=== PATIENT | male | born 1965 | race Caucasian/White ===

== ENCOUNTER 2016-12-13 07:02 | Day surgery (SDC) | payer OTHER ==
[~2016-12-13 07:02] MED LIST: BLOOD PRESSURE MED PO; COREG12.5 M1 PO; COREG6.25 MG PO; ERYTHROMYCIN3.5 GM OP; LOSARTAN-HCTZ1 EAC6 PO; MEDS; MELOXICAM15 M1 PO; MULTIVITAMINS1 EAC6 PO; NORCO 5/325 TAB1 TAB PO; OMEPRAZOLE40 MG PO; PRINIVIL10 MG PO; SIMVASTATIN20 MG PO; ZOCOR40 M1 PO; [UNRECOGNIZED DRUG - REMARK] PO
[2016-12-13 08:08] LABS: BASO % 0.4 % (0-2); EOS % 4.2 % (0-7); EOSINOPHIL ABSOLUTE COUNT 0.2 tho/cmm (0.0-0.7); HCT-HEMATOCRIT 40.1 % (36.0-53.5); HGB-HEMOGLOBIN 14.2 gm/dl (13.5-17.0); LYMPH % 28.3 % (20-45); LYMPH ABSOLUTE COUNT 1.5 tho/cmm (0.8-4.5); MCH (MEAN CORPUSCULAR HGB) 32.6 pg (28.0-32.0); MCHC MEAN CORPUSCULAR HGB CONC 35.4 % (32.0-36.0); MCV (MEAN CELL VOLUME) 92.2 fl (82.0-96.0); MEAN PLATELET VOLUME 9.6 cmc (9.4-12.4); MONO % 13.8 % (0-12); MONOCYTE ABSOLUTE COUNT 0.7 tho/cmm (0.0-1.2); NEUTROPHIL ABSOLUTE COUNT 2.8 tho/cmm (1.6-8.0); NEUTROPHIL-AUTOMATED 2.8 tho/cmm (1.6-8.0); NEUTROPHILS % 53.3 % (40-80); PLATELET COUNT 191 tho/cmm (150-450); RED BLOOD COUNT 4.35 mil/cmm (4.40-5.70); RED CELL DISTRIBUTION WIDTH 12.2 % (12.4-16.4); WHITE BLOOD COUNT 5.2 tho/cmm (4.0-10.0)
[2016-12-13 08:20] LABS: ANION GAP 10 mmol/L (0-20); BLOOD UREA NITROGEN 33 mg/dl (6-24); CALCIUM 8.8 mg/dl (8.5-10.5); CARBON DIOXIDE-VENOUS 27 mmol/L (22-32); CHLORIDE 107 mmol/l (96-110); CREATININE 0.98 mg/dl (0.60-1.30); GLUCOSE 99 mg/dL (70-110); POTASSIUM 3.8 mmol/L (3.7-5.1); SODIUM 140 mmol/L (135-145); eGFR VALUE FOR BLACK >90 mL/Min
[2016-12-13] MEDS ORDERED: PERCOCET 5-3251 EACH PO (22:40)
[2016-12-14] MEDS ORDERED: ZOFRAN4 M2 PO (01:33)
== END 2016-12-13 14:29 ==
LOC: SRG 07:02 → SHSB 07:03 → ORW 09:26 → PACU 10:35 → SHSB 11:15
PROVIDERS: Anesthesiology
PROC: 0WUF0JZ Supplement Abdominal Wall with Synthetic Substitute, Open Approach (ICD-10-PCS; principal; 2016-12-13)
DX: K42.0 Umbilical hernia with obstruction, without gangrene (principal); I10 Essential (primary) hypertension; E78.5 Hyperlipidemia, unspecified; K21.9 Gastro-esophageal reflux disease without esophagitis; N40.0 Benign prostatic hyperplasia without lower urinary tract symptoms; I73.00 Raynaud's syndrome without gangrene; Z88.0 Allergy status to penicillin; Z88.2 Allergy status to sulfonamides; Z88.5 Allergy status to narcotic agent; Z91.040 Latex allergy status; Z79.899 Other long term (current) drug therapy; Z98.890 Other specified postprocedural states
CPT/HCPCS: C1781; J0131; J1885

== ENCOUNTER 2016-12-13 22:27 | Emergency (ER) | payer OTHER ==
[2016-12-13] MEDS ORDERED: PERCOCET 5-3251 EACH PO (22:40)
[2016-12-13 23:14] LABS: BASO % 0.1 % (0-2); EOS % 0.1 % (0-7); HCT-HEMATOCRIT 39.2 % (36.0-53.5); HGB-HEMOGLOBIN 14.2 gm/dl (13.5-17.0); IMMATURE GRANULOCYTES ABSOLUTE 0.01 tho/cmm (0-0.03); IMMATURE GRANULOCYTES PERCENT 0.1 % (0-0.3); LYMPH ABSOLUTE COUNT 0.5 tho/cmm (0.8-4.5); MCH (MEAN CORPUSCULAR HGB) 32.9 pg (28.0-32.0); MCHC MEAN CORPUSCULAR HGB CONC 36.2 % (32.0-36.0); MEAN PLATELET VOLUME 9.5 cmc (9.4-12.4); MONO % 5.6 % (0-12); MONOCYTE ABSOLUTE COUNT 0.6 tho/cmm (0.0-1.2); NEUTROPHILS % 89.1 % (40-80); PLATELET COUNT 179 tho/cmm (150-450); RED BLOOD COUNT 4.31 mil/cmm (4.40-5.70); RED CELL DISTRIBUTION WIDTH 11.9 % (12.4-16.4)
[2016-12-13 23:24] LABS: ALB/GLOB RATIO 1.3 (0.8-2.0); ALBUMIN 3.8 g/dl (3.5-5.0); ALKALINE PHOSPHATASE 55 U/L (33-138); ALT/SGPT 38 U/L (12-78); ANION GAP 12 mmol/L (0-20); AST/SGOT 26 U/L (10-40); BILIRUBIN,TOTAL 1.6 mg/dl (0.0-1.5); BLOOD UREA NITROGEN 28 mg/dl (6-24); CALCIUM 8.6 mg/dl (8.5-10.5); CARBON DIOXIDE-VENOUS 24 mmol/L (22-32); CHLORIDE 106 mmol/l (96-110); CREATININE 0.98 mg/dl (0.60-1.30); GLUCOSE 123 mg/dL (70-110); LIPASE 140 U/L (73-393); POTASSIUM 3.8 mmol/L (3.7-5.1); SODIUM 138 mmol/L (135-145); eGFR VALUE FOR BLACK >90 mL/Min
[2016-12-13 23:41] LABS: WHITE BLOOD COUNT 10.1 tho/cmm (4.0-10.0)
[2016-12-14] MEDS ORDERED: ZOFRAN4 M2 PO (01:33)
== END 2016-12-14 01:38 ==
LOC: EDMED 22:27
PROVIDERS: Emergency Medicine
DX: R11.10 Vomiting, unspecified (principal); Z98.890 Other specified postprocedural states; I10 Essential (primary) hypertension; Z79.899 Other long term (current) drug therapy
CPT/HCPCS: J1200; J2405; J7030

== ENCOUNTER 2017-01-27 08:17 | Emergency (ER) | payer OTHER ==
[~2017-01-27 08:17] MED LIST changes: +PERCOCET 5-3251 EACH PO; +ZOFRAN4 M2 PO
[2017-01-27] MEDS ORDERED: TRAMADOL HCL50 M2 PO (09:14)
[2017-01-27] MEDS ORDERED: PREDNISONE20 M1 PO (09:14)
== END 2017-01-27 09:32 ==
LOC: EDMED 08:17
DX: M54.32 Sciatica, left side (principal); I10 Essential (primary) hypertension; Z79.899 Other long term (current) drug therapy